=== PATIENT | male | born 2000 | race African-American/Black ===

== ENCOUNTER 2021-06-16 18:07 | Emergency (ER) | payer OTHER ==
[~2021-06-16] VITALS: Ht 180.3 cm; Wt 138.6 kg
[~2021-06-16 18:07] MED LIST: MACR100 PO
[2021-06-16 18:18] VITALS: BP 144/93
== END 2021-06-16 19:25 | disposition left against medical advice (07) ==
LOC: EMS 18:20
DX: R53.1 Weakness (principal); Z53.21 Procedure and treatment not carried out due to patient leaving prior to being seen by health care provider